=== PATIENT | female | born 1990 | race Two or more races ===

== ENCOUNTER 2016-09-19 01:38 | Emergency (ER) | payer MEDICAID ==
[~2016-09-19] VITALS: Ht 172.7 cm; Wt 77.1 kg
[2016-09-19 01:50] VITALS: BP 128/72
[2016-09-19 02:10] LABS: BASOPHILS % (AUTO) 0.8 % (0.0-2.0); EOSINOPHILS % (AUTO) 0.4 % (0.0-3.0); LYMPHOCYTES % (AUTO) 33.5 % (20.0-45.0); MEAN CORPUSCULAR HEMOGLOBIN 31.2 PG (27.0-31.0); MEAN CORPUSCULAR HGB CONC 32.9 G/DL (32.0-36.0); MEAN CORPUSCULAR VOLUME 95 FL (80-99); MEAN PLATELET VOLUME 8.2 FL (6.5-10.1); MONOCYTES % (AUTO) 7.5 % (1.0-10.0); NEUTROPHILS % (AUTO) 57.8 % (45.0-75.0); PLATELET COUNT 217 K/UL (150-450); RED CELL DISTRIBUTION WIDTH 11.8 % (11.6-14.8); WHITE BLOOD COUNT 9.3 K/UL (4.8-10.8)
[2016-09-19] MEDS ORDERED: Morphine Sulfate 4mg/ml Inj IVP ONE (02:15)
[2016-09-19 02:27] LABS: ALANINE AMINOTRANSFERASE 15 U/L (3-33); ALBUMIN/GLOBULIN RATIO 1.2 (1.0-2.7); ANION GAP 15 (5-15); ASPARTATE AMINO TRANSFERASE 27 U/L (5-40); CALCIUM 9.9 mg/dL (8.6-10.2); CARBON DIOXIDE 21 mEQ/L (20-30); CHLORIDE 104 mEQ/L (98-107); CREATININE 0.9 mg/dL (0.5-0.9); GLOMERULAR FILTRATION RATE > 60 mL/min (>60); HEMOLYSIS 11; POTASSIUM 3.3 mEQ/L (3.4-4.9); SODIUM 140 mEQ/L (135-145); TOTAL PROTEIN 8.5 g/dL (6.6-8.7)
[2016-09-19] MEDS ORDERED: Lidocaine 1% 10mg/ml/EPI 0.01mg/ml 50ml INJ ONE (04:30)
[2016-09-19 05:00] VITALS: BP 117/63
[2016-09-19] MEDS ORDERED: IBUPROFEN600 MG ORAL (05:03)
[2016-09-19 06:26] VITALS: BP 113/66
[2016-09-19 06:27] VITALS: BP 113/66
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
--- NOTE | 2016-09-19 13:28 | Diagnostic Imaging Report ---
Indications:PAIN Technique: Three or 4 views of the right elbow Comparison: None Findings:Positioning suboptimal. No definite acute fractures, dislocations, joint space narrowing demonstrated. Due to lack of true lateral view, effusion cannot be definitively ruled out. Impression:No definite acute abnormality This agrees with the preliminary interpretation provided by the emergency room physician
== END 2016-09-19 06:00 | disposition home or self-care (01) ==
LOC: EDBD 01:38 → EMR 01:49
DX: S01.01XA Laceration without foreign body of scalp, initial encounter (principal); S16.1XXA Strain of muscle, fascia and tendon at neck level, initial encounter; S40.021A Contusion of right upper arm, initial encounter; M25.511 Pain in right shoulder; V43.62XA Car passenger injured in collision with other type car in traffic accident, initial encounter; Y93.9 Activity, unspecified; Y92.410 Unspecified street and highway as the place of occurrence of the external cause; S80.812A Abrasion, left lower leg, initial encounter; S80.811A Abrasion, right lower leg, initial encounter
CPT/HCPCS: 12032; 36415; 70450; 72125; 73030; 73070; 74177; 80053; 84703; 85025; 86850; 86900; 86901; 96360; 96374; 99284; J2270; Q9967; Z7502

== ENCOUNTER 2016-09-24 12:21 | Emergency (ER) | payer MEDICAID ==
[~2016-09-24] VITALS: Ht 172.7 cm; Wt 77.1 kg
[~2016-09-24 12:21] MED LIST: IBUPROFEN600 MG ORAL
[2016-09-24 12:50] VITALS: BP 118/77
[2016-09-24 13:06] VITALS: BP 118/77
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
== END 2016-09-24 13:07 | disposition home or self-care (01) ==
LOC: EMR 12:40
DX: F07.81 Postconcussional syndrome (principal); S01.01XD Laceration without foreign body of scalp, subsequent encounter; V49.9XXD Car occupant (driver) (passenger) injured in unspecified traffic accident, subsequent encounter; Y92.9 Unspecified place or not applicable
CPT/HCPCS: 99282

== ENCOUNTER 2016-09-30 09:36 | Emergency (ER) | payer MEDICAID ==
[~2016-09-30] VITALS: Ht 172.7 cm; Wt 77.1 kg
[2016-09-30 09:55] VITALS: BP 131/85
[2016-09-30] MEDS ORDERED: ROBAXIN-750750 MG PO (10:03)
[2016-09-30 10:08] VITALS: BP 131/85
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
== END 2016-09-30 10:08 | disposition home or self-care (01) ==
LOC: EMR 09:57
DX: Z48.02 Encounter for removal of sutures (principal); M62.838 Other muscle spasm; Z91.013 Allergy to seafood
CPT/HCPCS: 99283